=== PATIENT | female | born 1990 | race Caucasian/White ===

== ENCOUNTER 2017-10-29 14:17 | Emergency (ER) | payer OTHER | END 2017-10-29 15:20 | disposition home or self-care (01) | LOC: E/R 14:17 | DX: J02.9 Acute pharyngitis, unspecified (principal) | CPT/HCPCS: 99283; Z7502 ==

== ENCOUNTER 2017-12-09 20:21 | Emergency (ER) | payer OTHER ==
[2017-12-09 23:50] LABS: URINE BLOOD (Dip) POC 1+ (NEGATIVE); URINE GLUCOSE (Dip) POC Negative (NEGATIVE); URINE KETONES (Dip) POC 2+ (NEGATIVE); URINE LEUKOCYTE EST (Dip) POC Negative (NEGATIVE); URINE NITRITE (Dip) POC Negative (NEGATIVE); URINE TOTAL PROTEIN POC 2+ (NEGATIVE)
[2017-12-09] MEDS: LIDOCAINE/MYLANTA 40 ML BTL PO (23:58)
[2017-12-09] MEDS: DICYCLOMINE 10 MG CAP PO (23:58)
[2017-12-09] MEDS: ONDANSETRON (ODT) 4 MG TAB ODT (23:58)
== END 2017-12-10 00:20 | disposition home or self-care (01) ==
LOC: FTE 12-10 00:20
DX: R19.7 Diarrhea, unspecified (principal); R40.2412 Glasgow coma scale score 13-15, at arrival to emergency department; R11.10 Vomiting, unspecified
CPT/HCPCS: 81003; 81025; 99284